=== PATIENT | female | born 1980 | race African-American/Black ===

== ENCOUNTER 2017-07-13 11:51 | Emergency (ER) | payer OTHER ==
[~2017-07-13] VITALS: Ht 162.6 cm; Wt 68.0 kg
[~2017-07-13 11:51] MED LIST: ANTIVERT25 MG PO; APAP500 PO; IBUPROFEN 600600 M1 PO; NAPROSYN500 MG PO; NOHOMEMEDICATIONS; NORCO 5-325 TA1 EACH PO; ZOFRAN4 MG PO
[2017-07-13 12:43] LABS: URINE BILIRUBIN NEGATIVE (Negative); URINE BLOOD NEGATIVE (Negative); URINE CLARITY CLEAR; URINE COLOR YELLOW; URINE GLUCOSE-RANDOM* NEGATIVE (Negative); URINE KETONES NEGATIVE (Negative); URINE LEUKOCYTES NEGATIVE (Negative); URINE NITRITE NEGATIVE (Negative); URINE PROTEIN (DIPSTICK) NEGATIVE (Negative); URINE SPECIFIC GRAVITY <= 1.005 (1.005-1.035); URINE UROBILINOGEN 0.2 E.U./dl (0.2-1.0)
[2017-07-13 12:47] LABS: ABSOLUTE NEUTROPHILS 4.8 thou/uL (1.4-8.2); BASOPHILS 0.9 % (0.0-2.0); EOSINOPHILS 0.1 % (0.0-3.0); HEMATOCRIT 38.4 % (37.0-47.0); HEMOGLOBIN 12.7 gm/dL (12.0-15.0); MCH 26.3 pg (26.0-34.0); MCV 79.7 fL (80.0-100.0); MONOCYTES 5.2 % (1.0-8.0); PLATELET COUNT 271 thou/uL (150-400); POLYS 72.8 % (36.0-66.0); RBC 4.83 mil/uL (4.20-5.00); RDW 14.6 % (10.5-14.5); WBC 6.6 thou/uL (4.0-11.0)
[2017-07-13 12:57] LABS: CALCIUM 9.4 mg/dL (8.5-10.1); CREATININE 0.6 mg/dL (0.6-1.0); POTASSIUM 3.5 mmol/L (3.5-5.1)
[2017-07-13] MEDS ORDERED: SUDAFED 12-HOU120 MG PO (13:08)
[2017-07-13] MEDS ORDERED: FLONASE 0.05%50 MCG NASAL (13:08)
== END 2017-07-13 13:29 | disposition home or self-care (01) ==
LOC: ER 11:51
PROVIDERS: Physician Assistant
DX: J01.20 Acute ethmoidal sinusitis, unspecified (principal); J01.10 Acute frontal sinusitis, unspecified; J01.00 Acute maxillary sinusitis, unspecified; B34.9 Viral infection, unspecified; Z91.013 Allergy to seafood

== ENCOUNTER → 2017-08-10 | Outpatient (CLI) | payer OTHER ==
[~2017-08-10] MED LIST changes: +FLONASE 0.05%50 MCG NASAL; +NASACORT10.8 ML INH; +NORFLEX100 MG PO; +SUDAFED 12-HOU120 MG PO
== END ==
LOC: ULTRA 09:02
DX: R10.12 Left upper quadrant pain (principal)

== ENCOUNTER → 2017-09-15 | Outpatient (CLI) | payer OTHER ==
[~2017-09-15] MED LIST changes: -NASACORT10.8 ML INH; -NORFLEX100 MG PO
--- NOTE | ~2017-09-15 | 2DMMODE ---
[facility] [address] [place] [address] 2 D/M-MODE ECHOCARDIOGRAM Name: RAFAEL VAUGHAN STEVE Room #: REG [facility]#: [id number] Admission: 09/15/17 Attend Phys: Greg Samuels Discharge: Date of : 82 Date of Service: 09/15/17 1452 Report #: [id number] THIS REPORT FOR: //name// APPROVED REPORT Study performed: 09/15/2017 14:20:09 EXAM: Comprehensive 2D, Doppler, and color-flow Echocardiogram Patient Location: Out-Patient Status: routine BSA: 2.07 HR: 85 bpm BP: 118/81 mmHg Rhythm: NSR Other Information Study Quality: Adequate/lung artifact. Low parasternal window. Indications Palpitations 2D Dimensions RVDd: 25.06 mm LVEF(%): 55.78 (>50%) IVSd: 9.13 (7-11mm) LVDd: 37.68 mm PWd: 9.14 (7-11mm) LVDs: 26.93 (25-40mm) Aortic Root: 27.72 mm Baxter's LVEF: 55.78 % Volumes Left Atrial Volume (Systole) Single Plane 4CH: 23.60 mL Single Plane 2CH: 24.84 mL LA ESV Index: 12.00 mL/m2 Aortic Valve AoV Peak Cain.: 1.34 m/s AO Peak Gr.: 7.13 mmHg LVOT Max P.36 mmHg LVOT Max V: 1.04 m/s Mitral Valve E/A Ratio: 1.2 MV Decel. Time: 247.24 ms [facility] [address] [address] 2 D/M-MODE ECHOCARDIOGRAM Name: RAFAEL VAUGHAN Room #: REG CL [facility]#: [id number] Admission: 09/15/17 Attend Phys: Greg Samuels Discharge: Date of : 82 Date of Service: 09/15/17 1452 Report #: [id number] MV E Max Cain.: 0.71 m/s MV A Cain.: 0.57 m/s MV PHT: 71.70 ms IVRT: 69.20 ms Pulmonary Valve PV Peak Cain.: 0.95 m/s PV Peak Gr.: 3.61 mmHg Tricuspid Valve TR Peak Cain.: 1.67 m/s RAP Estimate: 5.00 mmHg TR Peak Gr.: 11.12 mmHg PA Pressure: 16.00 mmHg Left Ventricle The left ventricle is normal size. There is normal LV segmental wall motion. There is normal left ventricular wall thickness. Left ventricular systolic function is normal. LVEF is 55%. The left ventricular diastolic function is normal. Right Ventricle The right ventricle is normal size. The right ventricular systolic function is normal. Atria The left atrium size is normal. The right atrium size is normal. Aortic Valve The aortic valve is normal in structure. No aortic regurgitation is present. There is no aortic valvular stenosis. Mitral Valve The mitral valve is normal in structure. Trace mitral regurgitation. No evidence of mitral valve stenosis. Tricuspid Valve The tricuspid valve is normal in structure. Trace tricuspid regurgitation. Estimated PAP is 15-20mmHg. Pulmonic Valve Pulmonic valve is not well visualized. Great Vessels The aortic root is normal in size. IVC is normal in size and collapses >50% with inspiration. [facility] [place] [address] 2 D/M-MODE ECHOCARDIOGRAM Name: RAFAEL VAUGHAN STEVE Room #: REG CL [facility]#: [id number] Admission: 09/15/17 Attend Phys: Greg Samuels Discharge: Date of : 82 Date of Service: 09/15/17 1452 Report #: [id number] Pericardium There is no pericardial effusion. <Conclusion> The left ventricle is normal size. LVEF is 55%. The aortic valve is normal in structure. The mitral valve is normal in structure. Trace mitral regurgitation. The tricuspid valve is normal in structure. Trace tricuspid regurgitation. Estimated PAP is 15-20mmHg. Pulmonic valve is not well visualized. There is no pericardial effusion. <ELECTRONICALLY SIGNED> By: Greg Mayberry MD 09/15/17 1452 51 51 Greg Mayberry MD /INF
== END ==
LOC: CV 10:21
DX: R00.2 Palpitations (principal); M79.1 Myalgia; R53.83 Other fatigue; D71 Functional disorders of polymorphonuclear neutrophils

== ENCOUNTER 2017-10-23 20:46 | Emergency (ER) | payer OTHER ==
[~2017-10-23] VITALS: Ht 165.1 cm; Wt 63.5 kg
[2017-10-23] MEDS ORDERED: NASACORT10.8 ML INH (20:58)
[2017-10-23] MEDS ORDERED: NAPROSYN500 MG PO (21:38)
[2017-10-23] MEDS ORDERED: NORFLEX100 MG PO (21:38)
[2017-10-23 22:06] VITALS: BP 146/84
== END 2017-10-23 22:07 | disposition home or self-care (01) ==
LOC: ER 20:46
DX: M26.621 Arthralgia of right temporomandibular joint (principal); R51 Headache; Z91.013 Allergy to seafood

== ENCOUNTER 2020-11-01 13:06 | Emergency (ER) | payer OTHER ==
[~2020-11-01] VITALS: Ht 165.1 cm; Wt 65.8 kg
[~2020-11-01 13:06] MED LIST changes: +NASACORT10.8 ML INH; +NORFLEX100 MG PO
[2020-11-01] MEDS ORDERED: FLEXERIL PO (13:21)
[2020-11-01] MEDS ORDERED: VOLTAREN GEL 1100 G1 TOP (13:22)
[2020-11-01] MEDS ORDERED: IBU800 MG PO (13:22)
[2020-11-01 13:40] LABS: URINE BILIRUBIN NEGATIVE (Negative); URINE BLOOD NEGATIVE (Negative); URINE CLARITY CLEAR; URINE COLOR YELLOW; URINE GLUCOSE-RANDOM* NEGATIVE (Negative); URINE KETONES NEGATIVE (Negative); URINE LEUKOCYTES-REFLEX NEGATIVE (Negative); URINE NITRITE-REFLEX NEGATIVE (Negative); URINE PROTEIN (DIPSTICK) NEGATIVE (Negative); URINE UROBILINOGEN 0.2 E.U./dl (0.2-1.0)
[2020-11-01 14:45] LABS: ABSOLUTE NEUTROPHILS 8.7 thou/uL (1.4-8.2); BASOPHILS 0.6 % (0.0-2.0); EOSINOPHILS 0.2 % (0.0-3.0); HEMATOCRIT 33.2 % (37.0-47.0); HEMOGLOBIN 10.2 gm/dL (12.0-15.0); LYMPHOCYTES 12.6 % (24.0-44.0); MCH 20.7 pg (26.0-34.0); MCHC 30.9 g/dL (28.0-37.0); MCV 67.1 fL (80.0-100.0); PLATELET COUNT 271 thou/uL (150-400); POLYS 81.6 % (36.0-66.0); RBC 4.94 mil/uL (4.20-5.00); RDW 17.9 % (10.5-14.5); WBC 10.7 thou/uL (4.0-11.0)
[2020-11-01 14:50] LABS: CALCIUM 9.2 mg/dL (8.5-10.1); CREATININE 0.7 mg/dL (0.6-1.0); POTASSIUM 3.7 mmol/L (3.5-5.1)
[2020-11-01 15:53] LABS: ANISOCYTOSIS 1+; HYPOCHROMASIA 3+; MICROCYTES 2+
[2020-11-01 15:54] LABS: POLYCHROMASIA SLIGHT
[2020-11-01] MEDS ORDERED: NORCO5 PO (16:41)
[2020-11-01] MEDS ORDERED: IBUPROFEN 800800 M1 PO (16:41)
[2020-11-01 16:45] VITALS: BP 119/70
== END 2020-11-01 16:45 | disposition home or self-care (01) ==
LOC: ER 13:06
PROVIDERS: Emergency Medicine; Physician Assistant
DX: S39.012A Strain of muscle, fascia and tendon of lower back, initial encounter (principal); R10.32 Left lower quadrant pain; Z91.013 Allergy to seafood; Z79.899 Other long term (current) drug therapy; X50.1XXA Overexertion from prolonged static or awkward postures, initial encounter; Y93.89 Activity, other specified; Y92.89 Other specified places as the place of occurrence of the external cause; Y99.9 Unspecified external cause status